=== PATIENT | female | born 1965 ===

== ENCOUNTER 2018-05-26 14:12 | Emergency (ER) | payer BC, OTHER ==
[2018-05-26 14:36] VITALS: BP 122/60
--- NOTE | 2018-05-26 14:41 | UC ---
UC General HPI - HPI Summary HPI Summary: 4 DAY HX INCREASING COUGH WITH CONGESTION AND WHEEZING. NO FEVER BUT HX ASTHMA. - History of Current Complaint Stated Complaint: COUGH,WHEEZING,CONGESTION Time Seen by Provider: 05/26/18 14:32 Hx Obtained From: Patient Onset/Duration: Gradual Onset Timing: Constant Alleviating: PARTIAL WITH PROAIR Associated Signs & Symptoms: Positive: SOB, Wheezing. Negative: Chest Pain, Fever - Allergy/Home Medications Allergies/Adverse Reactions: Allergies Allergy/AdvReac Type Severity Reaction Status Date / Time amoxicillin Allergy Hives Verified 05/26/18 14:33 cephalexin [From Keflex] Allergy Hives Verified 05/26/18 14:33 clarithromycin [From Biaxin] Allergy Hives Verified 05/26/18 14:33 sulfamethoxazole Allergy Hives Verified 05/26/18 14:33 [From Bactrim] trimethoprim [From Bactrim] Allergy Hives Verified 05/26/18 14:33 Home Medications: Home Medications Albuterol HFA INHALER* [Ventolin HFA Inhaler*] 1 - 2 puff INH Q4H PRN 05/26/18 [ History Confirmed 05/26/18] Dm/P-Ephed/Acetaminoph/Doxylam [Rosemarie Aniwa Plus Severe 10-12.5-20-650 mg] 1 pow PO BID 05/26/18 [History Confirmed 05/26/18] guaiFENesin [Mucinex] 1 tab PO BID 05/26/18 [History Confirmed 05/26/18] PMH/Surg Hx/FS Hx/Imm Hx - Additional Past Medical History Additional PMH: PNEUMONIA Respiratory History: Asthma - Surgical History Surgical History: Yes Surgery Procedure, Year, and Place: eye - Family History Known Family History: Positive: Non-Contributory - Social History Alcohol Use: None Substance Use Type: None Smoking Status (MU): Never Smoked Tobacco - Immunization History Vaccination Up to Date: Yes Review of Systems All Other Systems Reviewed And Are Negative: Yes Constitutional: Positive: Negative Skin: Positive: Negative Eyes: Positive: Negative ENT: Positive: Sinus Congestion Respiratory: Positive: Shortness Of Breath, Cough Cardiovascular: Positive: Negative Gastrointestinal: Positive: Negative Genitourinary: Positive: Negative Motor: Positive: Negative Neurovascular: Positive: Negative Musculoskeletal: Positive: Negative Neurological: Positive: Negative Psychological: Positive: Negative Physical Exam Triage Information Reviewed: Yes Appearance: Well-Appearing Vital Signs Reviewed: Yes Eyes: Positive: Conjunctiva Clear ENT: Positive: Pharynx normal, Nasal congestion, TMs normal. Negative: Nasal drainage, Sinus tenderness Neck: Positive: Supple, Nontender, No Lymphadenopathy Respiratory: Positive: No respiratory distress, Decreased breath sounds, Other: - hARSH CONGESTED COUGH Cardiovascular: Positive: RRR, No Murmur Abdomen Description: Positive: Nontender, No Organomegaly, Soft Bowel Sounds: Positive: Present Musculoskeletal: Positive: ROM Intact Neurological: Positive: Alert Psychological: Positive: Age Appropriate Behavior Skin Exam: Normal Course/Dx - Differential Dx - Multi-Symptom Differential Diagnoses: Other - URI, SINSUITIS, BRONCHITIS, PNEUMONIA, ASTHMA FLARE - Diagnoses Provider Diagnosis: URI (upper respiratory infection), Asthma Discharge - Sign-Out/Discharge Documenting (check all that apply): Patient Departure All imaging exams completed and their final reports reviewed: No Studies - Discharge Plan Condition: Stable Disposition: HOME Prescriptions: DOXYcycline CAP(*) [DOXYcycline 100MG CAP(*)] 100 mg PO BID 7 Days #14 cap predniSONE TAB* [Deltasone 20 MG TAB*] 40 mg PO DAILY 5 Days #10 tab Patient Education Materials: Asthma (DC), Upper Respiratory Infection (DC) Referrals: Sadi Leonard MD [Primary Care Provider] - 5 Days Additional Instructions: USE THE PROAIR 2 PUFFS EVERY 6 HOURS - Billing Disposition and Condition Condition: STABLE Disposition: Home
== END 2018-05-26 14:50 | disposition home or self-care (01) ==
LOC: UCCORT 14:12
DX: Z88.1 Allergy status to other antibiotic agents (principal); J06.9 Acute upper respiratory infection, unspecified; J45.909 Unspecified asthma, uncomplicated; Z88.0 Allergy status to penicillin
CPT/HCPCS: 99212; G0463